=== PATIENT | female | born 1985 | race Caucasian/White ===

== ENCOUNTER 2018-06-09 16:56 | Emergency (ER) | payer OTHER ==
--- NOTE | 2018-06-09 16:58 | EDPHY ---
H & P Time Seen by Provider: 06/09/18 16:58 HPI/ROS: HPI CHIEF COMPLAINT: Lightheaded. HISTORY OF PRESENT ILLNESS: Otherwise healthy 32-year-old female, denies any significant medical history presents emergency room for lightheadedness. She states over the weekend approximately 6 days ago she was at a concert, she smoke marijuana and drink alcohol got lightheaded. He states that most the weekend she does rested. Over the past week she has had some intermittent lightheadedness or feeling like she was going to pass out. She noticed 1 time in the shower. Denies any chest pain or pleuritic pain, denies any shortness of breath. Denies headache or recent illness, denies diarrhea or vomiting. Denies room spinning or dizziness. Main complaint lightheadedness intermittent. She called her primary care doctor to try to get in with about the symptoms however was recommend to go the ER. Patient denies any fever, chest pain, shortness of breath, pleuritic pain. Denies headache or neck pain. Upon arrival to the emergency room she denies any complaints. She does report that she is a vegetarian. Does not know if she is iron deficient. Past Medical History: Denies significant medical history Past Surgical History: Denies recent surgery Social History: Denies daily use of drugs alcohol tobacco. Family History: Noncontributory ROS REVIEW OF SYSTEMS: 10 Systems were reviewed and negative with the exception of the elements mentioned in the history of present illness. Exam Constitutional triage nursing summary reviewed, vital signs reviewed, awake/ alert. Eyes normal conjunctivae and sclera, EOMI, PERRLA. HENT normal inspection, atraumatic, moist mucus membranes, no epistaxis, neck supple/ no meningismus, no raccoon eyes. Respiratory clear to auscultation bilaterally, normal breath sounds, no respiratory distress, no wheezing. Cardiovascular rate normal, regular rhythm, no murmur, no edema, distal pulses normal. Gastrointestinal soft, non-tender, no rebound, no guarding, normal bowel sounds, no distension, no pulsatile mass. Genitourinary no CVA tenderness. Musculoskeletal no midline vertebral tenderness, full range of motion, no calf swelling, no tenderness of extremities, no meningismus, good pulses, neurovascularly intact. Skin pink, warm, & dry, no rash, skin atraumatic. Neurologic awake, alert and oriented x 3, AAOx3, moves all 4 extremities equally, motor intact, sensory intact, CN II-XII intact, normal cerebellar, normal vision, normal speech. Psychiatric normal mood/affect. Heme/Lymph/Immune no lymphadenopathy. Differential Diagnosis: Includes but is not limited to in a particular order dehydration, electrolyte disturbance, orthostatic hypotension, cardiac arrhythmia, vasovagal syncope Medical Decision Making: Plan for this patient IV establishment patient blood draw, check CBC and chemistry, urine , EKG. Re-evaluation: EKG interpretation by me on record in [facility] system. Impression time of EKG 1725, sinus rhythm rate of 67, without any acute signs of ischemia. No ST elevation or ST depression no T-wave abnormalities. No prolonged intervals. Patient's point of care chemistry resulted a potassium 2.7. This seemed awfully low for this patient who is otherwise healthy. Due to this possibly being lab error we repeated her on an i-STAT. And is 3.3. Patient's point of care CBC reviewed. H&H are appropriate. Patient's urine test is negative. Patient's EKG is nonischemic no signs of cardiac arrhythmia. Patient's orthostatics are reviewed. 1859: Patient re-evaluated this time resting comfortably. No chest pain or shortness of breath. Vital signs are stable with a improvement of her blood pressure while resting here. Blood work is reviewed K is 3.3. H&H are stable. EKG is unremarkable for cardiac arrhythmia or ischemia. Patient had orthostatic vital signs HR was up 10pts. However feels well. Return precautions discussed with the patient. Understands return emergency room if there is worsening symptoms questions or concerns including chest pain, shortness of breath, syncope. Source: Patient Constitutional: Initial Vital Signs Temperature (C) 37 C 06/09/18 17:04 Heart Rate 75 06/09/18 17:04 Respiratory Rate 16 06/09/18 17:04 Blood Pressure 162/114 H 06/09/18 17:04 O2 Sat (%) 96 06/09/18 17:04 O2 Delivery Mode Room Air Allergies/Adverse Reactions: No Known Allergies Allergy (Unverified 06/09/18 17:07) Home Medications: Medication Instructions Recorded Sprintec 28 Day Tablet 06/09/18 Medical Decision Making - Data Points Laboratory Results: 06/09/18 06/09/18 18:06 17:38 POC Hgb 13.9 gm/dL gm/dL (12.6-16.3) POC Hct 41 % % (38-47) POC Sodium 140 mEq/L mEq/L 142 mEq/L mEq/L (135-145) (135-145) POC Potassium 3.3 mEq/L mEq/L 2.7 mEq/L L* mEq/L (3.3-5.0) (3.3-5.0) POC Chloride 105 mEq/L mEq/L 102.0 mEq/L mEq/L (97-110) (97-110) POC Total CO2 26 mEq/L mEq/L (22-31) POC BUN 11 mg/dL mg/dL 10 mg/dL mg/dL (7-23) (7-23) POC Creatinine 0.6 mg/dL mg/dL 0.6 mg/dL mg/dL (0.6-1.0) (0.6-1.0) POC Glucose 81 mg/dL mg/dL 83 mg/dL mg/dL (70-100) (70-100) POC Calcium 9.2 mg/dL mg/dL (8.5-10.4) Medications Given: Discontinued Medications Sodium Chloride (Ns) 1,000 mls @ 0 mls/hr IV ONCE ONE PRN Reason: Wide Open Stop: 06/09/18 17:15 Last Admin: 06/09/18 17:30 Dose: 1,000 mls Point of Care Test Results: CBC CBC Collection Date 06/09/18 CBC Collection Time 17:30 WBC 5.6 RBC 4.59 HGB 13.9 HCT 40.0 PLT 219 Neut # 3.0 Neut 53.2 LYMPH # 2.1 LYMPH 37.2 Other WBC # 0.5 Other WBC 9.6 MCV 87.1 Chemistry 06/09/1818 18:06 17:38 POC Sodium 140 mEq/L mEq/L 142 mEq/L mEq/L (135-145) (135-145) POC Potassium 3.3 mEq/L mEq/L 2.7 mEq/L L* mEq/L (3.3-5.0) (3.3-5.0) POC Chloride 105 mEq/L mEq/L 102.0 mEq/L mEq/L (97-110) (97-110) POC Total CO2 26 mEq/L mEq/L (22-31) POC BUN 11 mg/dL mg/dL 10 mg/dL mg/dL (7-23) (7-23) POC Creatinine 0.6 mg/dL mg/dL 0.6 mg/dL mg/dL (0.6-1.0) (0.6-1.0) POC Glucose 81 mg/dL mg/dL 83 mg/dL mg/dL (70-100) (70-100) POC Calcium 9.2 mg/dL mg/dL (8.5-10.4) ISTAT H&H 06/09/18 18:06 POC Hgb 13.9 gm/dL gm/dL (12.6-16.3) POC Hct 41 % % (38-47) Urine Collection Date 06/09/18 Collection Time 18:10 HCG Results Negative Departure - Departure Disposition: Home, Routine, Self-Care Clinical Impression: Lightheadedness Condition: Good Instructions: Near Syncope (ED), Lightheadedness (ED) Additional Instructions: 1. Drink lots of fluids stay well-hydrated. 2. Return emergency room if he develops worsening symptoms including passing out , chest pain or shortness of breath. Referrals: NONE *PRIMARY CARE P,. [Primary Care Provider] - As per Instructions
[2018-06-09] MEDS ORDERED: NS 1,000 ML IV ONE (17:14)
[2018-06-09 18:47] VITALS: BP 115/81
--- NOTE | 2018-06-14 19:20 | CPEKG ---
Test Reason : syncope Blood Pressure : / mmHG Vent. Rate : 067 BPM Atrial Rate : 066 BPM P-R Int : 124 ms QRS Dur : 089 ms QT Int : 404 ms P-R-T Axes : 057 068 062 degrees QTc Int : 427 ms Sinus rhythm Confirmed by Xenia Fletcher [id number] on 06/14/2018 7:19:36 PM Referred By: Confirmed By:Xenia [email or web address]
== END 2018-06-09 19:00 | disposition home or self-care (01) ==
LOC: CED 16:56
DX: R42 Dizziness and giddiness (principal)
CPT/HCPCS: 80048-PO; 82435-PO; 82565-PO; 82947-PO; 84132-PO; 84295-PO; 84520-PO; 85014-PO